=== PATIENT | male | born 1975 | race Caucasian/White ===

== ENCOUNTER 2022-02-19 08:05 | Emergency (ER) | payer OTHER | END 2022-02-19 10:57 | disposition home or self-care (01) | LOC: FER 08:05 | DX: S60.022A Contusion of left index finger without damage to nail, initial encounter (principal); S60.512A Abrasion of left hand, initial encounter; I10 Essential (primary) hypertension; Z88.0 Allergy status to penicillin; W23.1XXA Caught, crushed, jammed, or pinched between stationary objects, initial encounter; Y92.89 Other specified places as the place of occurrence of the external cause; Y99.0 Civilian activity done for income or pay; Z28.310 Unvaccinated for COVID-19 | CPT/HCPCS: 73130 ==